=== PATIENT | female | born 1970 | race Caucasian/White ===

== ENCOUNTER → 2020-07-29 | Outpatient (CLI) | payer OTHER | LOC: ECHO 09:54 | DX: R07.89 Other chest pain (principal); I34.0 Nonrheumatic mitral (valve) insufficiency | CPT/HCPCS: ECHO; 93306 ==

== ENCOUNTER → 2021-10-11 | Outpatient (CLI) | payer OTHER | LOC: KOH-I 16:44 | DX: M25.562 Pain in left knee (principal) | CPT/HCPCS: 73562 ==

== ENCOUNTER → 2022-02-25 | Outpatient (CLI) | payer OTHER | LOC: KOH-I 09:44 | DX: M54.50 Low back pain, unspecified (principal); G89.29 Other chronic pain; M47.816 Spondylosis without myelopathy or radiculopathy, lumbar region; M47.814 Spondylosis without myelopathy or radiculopathy, thoracic region | CPT/HCPCS: 72070; 72100 ==